=== PATIENT | female | born 1980 | race Native Hawaiian/Other Pacific Islander ===

== ENCOUNTER 2018-06-03 10:32 | Emergency (ER) | payer BC ==
[~2018-06-03] VITALS: Ht 170.2 cm; Wt 104.3 kg
[2018-06-03 10:37] VITALS: TEMP 97.5
[2018-06-03 12:53] VITALS: BP 162/88
== END 2018-06-03 12:53 | disposition home or self-care (01) ==
LOC: ED 10:32
DX: I10 Essential (primary) hypertension (principal); R63.5 Abnormal weight gain; E66.9 Obesity, unspecified
CPT/HCPCS: 93005; 99283

== ENCOUNTER 2020-05-24 12:46 | Outpatient (CLI) | payer BC, OTHER | END 2020-05-25 15:47 | disposition home or self-care (01) | LOC: INF 12:46 | PROVIDERS: ATTEND Internal Medicine | DX: Z23 Encounter for immunization (principal) ==

== ENCOUNTER 2020-06-14 10:18 | Outpatient (CLI) | payer BC, OTHER | END 2020-06-14 23:59 | disposition home or self-care (01) | LOC: INF 10:18 | PROVIDERS: ATTEND Internal Medicine | DX: Z23 Encounter for immunization (principal) | CPT/HCPCS: 96372 ==

== ENCOUNTER 2021-05-01 15:01 | Outpatient (CLI) | payer BC | END 2021-05-01 19:36 | disposition home or self-care (01) | LOC: RESP 15:01 | PROVIDERS: ATTEND Internal Medicine | DX: I10 Essential (primary) hypertension (principal) ==